=== PATIENT | female | born 1980 | race Hispanic/Latino ===

== ENCOUNTER 2016-09-27 21:41 | Emergency (ER) | payer BC ==
[2016-09-27 21:46] VITALS: TEMP 97.8; O2SAT 100
--- NOTE | 2016-09-27 22:31 | ED PDOC ---
HPI: Hypertension/Hypotension Time Seen by Provider: 09/27/16 21:51 Chief Complaint (Nursing): High Blood Pressure Chief Complaint (Provider): high blood pressure History Per: Patient History/Exam Limitations: no limitations Onset/Duration Of Symptoms: Hrs Current Symptoms Are (Timing): Still Present Associated Symptoms: denies: Chest Pain, Dyspnea, Dizziness, Blurred Vision, Focal Weakness, Headache Quality Of Symptoms: Asymptomatic Severity: None Pain Scale Rating Of: 0 Exacerbating Factor(s): Pos: None Additional Complaint(s): 36 y/o female with a PMHx remarkable for uncontrolled hypertension presents to [facility] with a CC of elevated BP. Pt woke up today feeling "heavy headed " and decided to check her BP. Initial BP this morning was 175/112 then ranged 211-217/135 during the day. She took an herbal [facility] and her BP dropped to 193/125. Last BP check before today was months ago as per pt and was ~140/90. She was prescribed a Ukranian -sartan BP medication but has not been taking it due to headaches. She denies any associated symptoms with the elevated BP. Denies drug use. Denies any headaches, changes in vision, dizziness , lightheadedness, weakness, CP/SOB/ROSENBERG, N/V, numbness/tingling, problems with speech. Past Medical History Vital Signs: Last Vital Signs Temp 97.8 F 09/27/16 21:42 Pulse 87 09/27/16 21:42 Resp 16 09/27/16 21:42 BP 184/123 H 09/27/16 21:42 Pulse Ox 100 09/27/16 21:42 - Medical History PMH: HTN - Family History Family History: States: No Known Family Hx - Social History Current smoker - smoking cessation education provided: No Ex-Smoker (has not smoked in the last 12 months): No Alcohol: Occasional Drugs: Denies - Home Medications Home Medications: Ambulatory Orders Medication Instructions Recorded Lisinopril [Zestril] 10 mg PO QAM #14 tab 09/28/16 - Allergies Allergies/Adverse Reactions: Allergies Allergy/AdvReac Type Severity Reaction Status Date / Time No Known Allergies Allergy Verified 09/27/16 21:42 Review of Systems ROS Statement: Except As Marked, All Systems Reviewed And Found Negative Physical Exam - Reviewed Vital Signs Reviewed: Yes - Physical Exam Appears: Positive for: Well, No Acute Distress. Negative for: Uncomfortable Head Exam: Positive for: ATRAUMATIC, NORMOCEPHALIC Skin: Positive for: Normal Color, Warm, Dry. Negative for: Diaphoresis, Pallor Eye Exam: Positive for: Normal appearance, EOMI, PERRL. Negative for: Conjunctival injection, Scleral icterus Neck: Positive for: Normal, Painless ROM, Supple. Negative for: Decreased ROM Cardiovascular/Chest: Positive for: Regular Rate, Rhythm. Negative for: Edema, Gallop, JVD, Murmur, Bradycardia, Tachycardia Respiratory: Positive for: Normal Breath Sounds. Negative for: Accessory Muscle Use, Crackles, Rales, Rhonchi, Wheezing, Respiratory Distress Pulses-Carotid (L): 2+ Pulses-Carotid (R): 2+ Pulses-Dorsalis Pedis (L): 2+ Pulses-Dorsalis Pedis (R): 2+ Pulses-Radial (L): 2+ Pulses-Radial (R): 2+ Gastrointestinal/Abdominal: Positive for: Normal Exam, Bowel Sounds, Soft. Negative for: Tenderness, Organomegaly, Distended, Guarding Back: Negative for: L CVA Tenderness, R CVA Tenderness, Vertebral Tenderness Extremity: Negative for: Pedal Edema, Swelling Neurologic/Psych: Positive for: Alert, bread icer II-XII, Oriented. Negative for: Motor/Sensory Deficits, Aphasia, Facial Droop - Laboratory Results Result Diagrams: 09/27/16 22:30 09/27/16 22:30 - ECG O2 Sat by Pulse Oximetry: 100 - Progress ED Course And Treament: labs ordered: CBC with diff: WNL CMP: hypokalemia @ 3.2 otherwise unremarkable UA Upreg Imaging: EKG: NSR Meds Lisinopril 10mg PO: pt asked only to take 1/2 of the pill now and see how she feels before finishing the rest of the dose. Advised to take full dose, however after discussion, pt still refused. Will take 1/2 now and other half in 15 minutes. Retake BP @ 23:24 via manual: 168/117, took 2nd half of lisinopril dose. Retake BP @ midnight: 154/114 . Disposition - Clinical Impression Clinical Impression: Hypertension - Patient ED Disposition Is Patient to be Admitted: No - Disposition Referrals: Raza Carrion MD [Emergency Midlevel Provider] - Disposition: Routine/Home Disposition Time: 00:30 Condition: STABLE Prescriptions: Lisinopril [Zestril] 10 mg PO QAM #14 tab Instructions: Hypertension (ED) - POA Present On Arrival: None
[2016-09-27 22:54] LABS: BASO # 0.1 K/uL (0.0-0.2); BASO % 0.7 % (0.0-2.0); EOS % 0.6 % (0.0-4.0); HEMATOCRIT 40.4 % (34.0-47.0); LYMPH # 2.3 K/uL (1.0-4.3); LYMPH % 29.1 % (20.0-40.0); MEAN CELL VOLUME 89.7 fl (81.0-99.0); MEAN CORPUSCULAR HEMOGLOBIN 30.2 pg (27.0-31.0); MEAN CORPUSCULAR HGB CONC 33.7 g/dL (33.0-37.0); MEAN PLATELET VOLUME 8.4 fl (7.2-11.7); MONO # 0.5 K/uL (0.0-0.8); MONO % 6.6 % (0.0-10.0); NEUT # 5.1 K/uL (1.8-7.0); NRBC % 0.2 % (0.0-0.0); RED CELL DISTRIBUTION WIDTH 13.3 % (11.5-14.5); WHITE BLOOD COUNT 8.1 K/uL (4.8-10.8)
[2016-09-27 23:03] LABS: ALB/GLOB RATIO 1.4 (1.0-2.1); ALKALINE PHOSPHATASE 74 U/L (38-126); ALT/SGPT 30 U/L (9-52); AST/SGOT 23 U/L (14-36); BILIRUBIN,TOTAL 0.7 mg/dl (0.2-1.3); BLOOD UREA NITROGEN 10 mg/dl (7-17); CALCIUM 9.3 mg/dL (8.4-10.2); CARBON DIOXIDE 23 mmol/L (22-30); CHLORIDE 100 mmol/L (98-107); GFR AFRICAN-AMERICAN > 60; GLUCOSE,RANDOM 88 mg/dL (65-105); POTASSIUM 3.2 MMOL/L (3.6-5.0); SODIUM 136 mmol/l (132-148); TOTAL PROTEIN 8.2 G/DL (6.3-8.2)
[2016-09-27 23:07] LABS: RBC URINE 3 /hpf (0-3); URINE BILIRUBIN NEGATIVE (NEGATIVE); URINE BLOOD MODERATE (NEGATIVE); URINE COLOR STRAW (YELLOW); URINE GLUCOSE (UA) NEG (Normal); URINE KETONE 20 mg/dL (NEGATIVE); URINE LEUKOCYTE ESTERASE NEG Leu/uL (Negative); URINE PROTEIN NEGATIVE (NEGATIVE); URINE UROBILINOGEN 0.2-1.0 mg/dL (0.2-1.0); WBC URINE 2 /hpf (0-5)
[2016-09-28 00:41] VITALS: BP 153/113; PULSE 72; RESP 19
--- NOTE | 2016-09-29 09:39 | CARD ---
APPROVED REPORT EKG Measurement Heart [id number] NM [id number] <Conclusion> Normal sinus rhythm Normal ECG
== END 2016-09-28 00:43 | disposition home or self-care (01) ==
LOC: H.ER 21:41
DX: I10 Essential (primary) hypertension (principal)

== ENCOUNTER 2016-09-28 23:15 | Emergency (ER) | payer BC ==
[2016-09-28 23:23] VITALS: PULSE 84; RESP 16; TEMP 98; O2SAT 100
--- NOTE | 2016-09-29 00:14 | ED PDOC ---
HPI: Hypertension/Hypotension Chief Complaint (Provider): Hypertension History Per: Patient, Family Additional Complaint(s): [place] Bellperson #[id number] p/w repeat elevated blood pressure after being seen in the ED yesterday for same symptoms. She denies any focal neuro deficits, has a mild headache, denies visual disturbance. She reports only taking 1/2 of a Lisinopril this morning because "she was concerned she might cause a low blood pressure". Of note patient has been to multiple doctors to address her hypertension but has not tolerated Norvasc or Benicar due to "head fullness" and so has not continued with the physicians. HTN was diagnosed 5yrs ago in the [facility] [place]. <Margo Kim - Last Filed: 09/29/16 02:23> <Kun Jacques - Last Filed: 09/29/16 02:29> Time Seen by Provider: 09/28/16 23:26 Chief Complaint (Nursing): High Blood Pressure Past Medical History Vital Signs: Last Vital Signs Temp 36.7 C 09/28/16 23:19 Pulse 84 09/28/16 23:19 Resp 16 09/28/16 23:19 BP 160/115 H 09/28/16 23:19 Pulse Ox 100 09/28/16 23:19 - Medical History PMH: HTN - Family History Family History: States: No Known Family Hx <Margo Kim - Last Filed: 09/29/16 02:23> Vital Signs: Last Vital Signs Temp 98.0 F 09/28/16 23:19 Pulse 84 09/28/16 23:19 Resp 16 09/28/16 23:19 BP 158/111 H 09/29/16 01:29 Pulse Ox 100 09/29/16 02:23 <Kun Jacques - Last Filed: 09/29/16 02:29> - Home Medications Home Medications: Ambulatory Orders Medication Instructions Recorded Lisinopril [Zestril] 10 mg PO QAM #14 tab 09/28/16 - Allergies Allergies/Adverse Reactions: Allergies Allergy/AdvReac Type Severity Reaction Status Date / Time No Known Allergies Allergy Verified 09/28/16 23:17 Review of Systems ROS Statement: Except As Marked, All Systems Reviewed And Found Negative Neurological: Positive for: Headache <Margo Kim - Last Filed: 09/29/16 02:23> Physical Exam - Reviewed Vital Signs Reviewed: Yes (Rt: 176/119; Lt: 168/112) - Physical Exam Appears: Positive for: Well, Non-toxic, No Acute Distress Head Exam: Positive for: ATRAUMATIC, NORMAL INSPECTION Skin: Positive for: Normal Color, Warm Eye Exam: Positive for: Normal appearance, EOMI, PERRL Neck: Positive for: Supple Cardiovascular/Chest: Positive for: Regular Rate, Rhythm. Negative for: Murmur Respiratory: Positive for: Normal Breath Sounds. Negative for: Crackles, Rales , Rhonchi, Wheezing Gastrointestinal/Abdominal: Positive for: Bowel Sounds, Soft. Negative for: Tenderness Extremity: Positive for: Capillary Refill. 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 Negative for: Motor/Sensory Deficits <Margo Kim - Last Filed: 09/29/16 02:23> - ECG O2 Sat by Pulse Oximetry: 100 <Margo Kim - Last Filed: 09/29/16 02:23> Medical Decision Making Medical Decision MakinF with recurrent hypertension after not taking medication as prescribed w/o FND. - Lisinopril 10mg, PO - CT head w/o contrast: no abnormalities - Repeat blood pressure 150/103 1hr after Lisinopril. Extensive conversation with patient about the dangers of not taking medication as prescribed to include irreversible damage to liver, kidneys, and brain. Patient expressed understanding, agrees to f/u at [facility] with Dr Neftaly Carrion for further outpatient work-up. <Margo Kim - Last Filed: 09/29/16 02:23> Disposition - Patient ED Disposition Is Patient to be Admitted: No Counseled Patient/Family Regarding: Studies Performed, Diagnosis, Need For Followup - Disposition Disposition: Routine/Home Disposition Time: :17 <Margo Kim - Last Filed: 09/29/16 02:23> - Disposition Disposition: Routine/Home Disposition Time: 02:29 <Kun Jacques - Last Filed: 09/29/16 02:29> - Clinical Impression Clinical Impression: Hypertension - Disposition Referrals: [facility] [Outside] Condition: GOOD Additional Instructions: TAKE HYPERTENSION MEDICATION PRESCRIBED (lisinopril 10mg, PO, Daily) TAKE HYPERTENSION MEDICATION PRESCRIBED (lisinopril 10mg, PO, Daily) Return to the emergency room if visual problems, weakness on one side of the body develops, speech problems, or headache that does not improve with Tylenol Keep appointment with [facility]- Dr Carrion Instructions: Hypertension (ED)
[2016-09-29 01:31] VITALS: BP 158/111
--- NOTE | 2016-09-29 08:33 | CT ---
PROCEDURE: CT HEAD WITHOUT CONTRAST. HISTORY: headache COMPARISON: None available. TECHNIQUE: Axial computed tomography images were obtained through the head/brain without intravenous contrast. Radiation dose: Total exam DLP = 848.07 mGy-cm. FINDINGS: HEMORRHAGE: No intracranial hemorrhage. BRAIN: No mass effect or edema. No CT evidence of acute territorial infarct. No atrophy or chronic microvascular ischemic changes. VENTRICLES: Unremarkable. No hydrocephalus. CALVARIUM: Unremarkable. PARANASAL SINUSES: Unremarkable as visualized. No significant inflammatory changes. MASTOID AIR CELLS: Unremarkable as visualized. No inflammatory changes. OTHER FINDINGS: None. IMPRESSION: No CT evidence of acute intracranial hemorrhage or acute territorial infarct. Acute infarction may be CT occult within first 24 hours. If a focal deficit persists, consider followup CT or MRI for further evaluation.
== END 2016-09-29 02:41 | disposition home or self-care (01) ==
LOC: H.ER 23:15
DX: I10 Essential (primary) hypertension (principal); R51 Headache

== ENCOUNTER 2016-09-29 19:51 | Emergency (ER) | payer BC ==
[2016-09-29 20:41] VITALS: RESP 20; O2SAT 100
--- NOTE | 2016-09-29 22:01 | ED PDOC ---
HPI: Hypertension/Hypotension Time Seen by Provider: 09/29/16 21:43 Chief Complaint (Nursing): High Blood Pressure Chief Complaint (Provider): hypertension History Per: Patient History/Exam Limitations: no limitations Onset/Duration Of Symptoms: Days Current Symptoms Are (Timing): Still Present Additional History Per: Patient Additional Complaint(s): 36 y/o female ambulates to ED for eval of persistent hypertension x 3 days. Patient has been to ED twice in the last two days for same, was prescribed Lisonpril 10mg with little improvement of blood pressure readings at home. Patient followed up with primary doctor today and was told to stop Lisinoprile, and was given Azilsartan Medoxomil and Chlorthalidone 40/12.5mg to take in the am, and Bystolic 5mg to take in the pm. Patient notes BP to be 190/110 at home , which prompted ED visit. Patient did not take Bystolic. Denies headache, dizziness, extremity numbness/weakness, chest pain, shortness of breath, palpitations. Past Medical History Reviewed: Historical Data, Nursing Documentation, Vital Signs Vital Signs: Last Vital Signs Temp 98.2 F 09/29/16 20:38 Pulse 82 09/29/16 20:38 Resp 20 09/29/16 20:38 BP 173/115 H 09/29/16 20:38 Pulse Ox 100 09/29/16 20:38 - Medical History PMH: HTN Denies: Chronic Kidney Disease - Surgical History Surgical History: No Surg Hx - Family History Family History: States: Unknown Family Hx - Home Medications Home Medications: Ambulatory Orders Medication Instructions Recorded Lisinopril [Zestril] 10 mg PO QAM #14 tab 09/28/16 - Allergies Allergies/Adverse Reactions: Allergies Allergy/AdvReac Type Severity Reaction Status Date / Time No Known Allergies Allergy Verified 09/28/16 23:17 Review of Systems ROS Statement: Except As Marked, All Systems Reviewed And Found Negative Physical Exam - Reviewed Nursing Documentation Reviewed: Yes Vital Signs Reviewed: Yes - Physical Exam Appears: Positive for: Well, Non-toxic, No Acute Distress Head Exam: Positive for: ATRAUMATIC, NORMAL INSPECTION, NORMOCEPHALIC Skin: Positive for: Normal Color Eye Exam: Positive for: Normal appearance ENT: Positive for: Normal ENT Inspection Cardiovascular/Chest: Positive for: Regular Rate, Rhythm Respiratory: Positive for: Normal Breath Sounds Gastrointestinal/Abdominal: Positive for: Normal Exam Back: Positive for: Normal Inspection Extremity: Positive for: Normal ROM Neurologic/Psych: Positive for: Alert, Oriented - ECG ECG: Positive for: Viewed By Me (reviewed by ED attending) ECG Rhythm: Positive for: Sinus Rhythm O2 Sat by Pulse Oximetry: 100 - Progress ED Course And Treament: Patient offered Clonidine but states she will try her new Bystolic dose that was prescribed for pm. Patient was educated on taking new blood pressure medications as instructed, and advised it may take a few doses to see desired effects. Educated on low sodium diet. Checking BP 2-3 times daily max. Follow up PMD as scheduled. Return to ED for worsening/concerning symptoms. Disposition - Clinical Impression Clinical Impression: Hypertension Counseled Patient/Family Regarding: Studies Performed, Diagnosis, Need For Followup - Disposition Disposition: Routine/Home Disposition Time: 23:21 Condition: IMPROVED Additional Instructions: Take new medications as described. Follow up with primary doctor as discussed at today's visit. Return to ED for worsening/concerning symptoms. Instructions: DASH Eating Plan (ED), Hypertension (ED)
[2016-09-29 22:17] VITALS: PULSE 92; TEMP 98.9
[2016-09-29 23:03] VITALS: BP 145/107
== END 2016-09-29 23:30 | disposition home or self-care (01) ==
LOC: H.ER 19:51
DX: I10 Essential (primary) hypertension (principal)